=== PATIENT | male | born 1980 | race Caucasian/White ===

== ENCOUNTER → 2020-12-31 09:38 | Outpatient (CLI) | payer OTHER, SELFPAY ==
[2020-12-31] MEDS: COVID-19 VACC #1, MRNA(MOD) 100 MCG/0.5 ML VIAL IM (09:45)
== END ==
PROVIDERS: Visit Provider Internal Medicine
DX: Z23 Encounter for immunization (principal)
CPT/HCPCS: 0011A; 91301

== ENCOUNTER → 2021-01-28 08:18 | Outpatient (CLI) | payer OTHER, SELFPAY ==
[2021-01-28] MEDS: COVID-19 VACC #2, MRNA(MOD) 100 MCG/0.5 ML VIAL IM (08:23)
== END ==
PROVIDERS: Visit Provider Internal Medicine
DX: Z23 Encounter for immunization (principal)
CPT/HCPCS: 0012A; 91301

== ENCOUNTER 2021-03-01 06:49 | Emergency (ER) | payer OTHER, SELFPAY ==
[2021-03-01 06:57] VITALS: BP 141/89; PULSE 77; RESP 18; TEMP 36.1; O2SAT 97; BMI 33.7
--- NOTE | 2021-03-01 07:05 | ED.DENTAL ---
HPI - Dental/Oral General Chief complaint: Dental/Oral Stated complaint: TOOTH ISSUE, LEFT SIDE Time Seen by Provider: 03/01/21 06:54 Source: patient Mode of arrival: Ambulatory Limitations: no limitations History of Present Illness HPI Narrative: Patient is a 40-year-old male who presents with left upper dental pain ongoing for the last 2 days she has been taking ibuprofen for his last dose was at 3:00 a.m.. It is throbbing and painful no swelling or fevers quite sensitive to cold and heat and air. He has a dentist he just unable to get in touch with them at this time MD Complaint: tooth pain Teeth map: 1. [place], painful no dental abscess Relieving factors: NSAIDs Exacerbating factors: cold, heat and drinking fluids Related Data Previous Rx's Medication Instructions Recorded amoxicillin 500 mg PO BID #14 cap 03/01/21 Review of Systems Review of Systems Narrative: GENERAL: Denies chills,fever HEENT: See HPI RESPIRATORY: Denies dyspnea, cough, wheezing CARDIOVASCULAR: Denies chest pain, palpitations GASTROINTESTINAL: Denies nausea, vomiting MUSCULOSKELETAL: Denies extremity pain, injury SKIN: No rash, no laceration, no pruritus NEUROLOGIC: Denies weakness, dizziness, headache, numbness 8 point review of systems is negative except for those stated above and HPI Patient History Social History Smoking Status: Never smoker Smoking Status: Never smoker alcohol intake frequency: 0-2 drinks per day Substance Use Type: does not use Exam Initial Vital Signs Initial Vital Signs: Vital Signs Temperature 96.9 F L 03/01/21 06:57 Pulse Rate 77 03/01/21 06:57 Respiratory Rate 18 03/01/21 06:57 Blood Pressure 141/89 H 03/01/21 06:57 Pulse Oximetry 97 03/01/21 06:57 GENERAL: 40-year-old male appears in pain MOUTH: No dental abscess minimal dental alise is overall teeth look healthy. No facial swelling or erythema CARDIOVASCULAR: peripheral pulses in tact, cap refill <2 sec RESPIRATORY: No respiratory distress, speaks in full sentences without difficulty EXTREMITIES: Normal range of motion, no clubbing or edema. Neurovascularly intact NEUROLOGICAL: Cranial nerves II through XII grossly intact. Normal gait and speech. SKIN: Warm, dry, no petechiae, no rashes or lesions. Course Orders Ordered: Discontinued Medications Acetaminophen (Acetaminophen 325 Mg Tablet) 975 mg PO NOW ONE Stop: 03/01/21 07:11 Last Admin: 03/01/21 07:20 Dose: 975 mg Documented by: Vital Signs Vital signs: Vital Signs - 8 hr 03/01/21 06:57 Temperature 96.9 F L Pulse Rate 77 Respiratory Rate 18 Blood Pressure 141/89 H Pulse Oximetry 97 Discharge Plan Departure Patient Disposition: Home Clinical Impression: Toothache Instructions: DI for Dental Pain Activity Restrictions/Additional Instructions: *You have been diagnosed with dental pain *What to do: He will need to see a dentist. Pain control in antibiotics should help *Continue to take medications as directed Amoxicillin 500 mg twice a day for 7 days Ibuprofen 800 mg every 8 hours with food Tylenol 1000 mg every 6 hours (no more than 4000 mg in 24 hours) *Follow up with your primary care provider in 2-3 days *Return to ER if you should have facial swelling, redness, fever or any new, worsening or concerning symptoms Prescriptions: New amoxicillin 500 mg capsule 500 mg PO BID Qty: 14 RF: 0
[2021-03-01] MEDS: ACETAMINOPHEN 325 MG TABLET 975 MG PO (07:20)
== END 2021-03-01 07:27 | disposition home or self-care (01) ==
PROVIDERS: Emergency Provider Emergency Medicine
DX: K08.89 Other specified disorders of teeth and supporting structures (principal)
CPT/HCPCS: 99282; 99283

== ENCOUNTER 2023-09-20 15:10 | Emergency (ER) | payer OTHER, SELFPAY ==
[2023-09-20 15:30] VITALS: BP 145/95; PULSE 85; RESP 18; TEMP 37; O2SAT 96; BMI 34.9
[2023-09-20] MEDS: ONDANSETRON 4 MG ODT SL (15:41)
== END 2023-09-20 17:02 | disposition left against medical advice (07) ==
PROVIDERS: Emergency Provider Emergency Medicine; PCP Family Medicine
DX: R11.0 Nausea (principal)
CPT/HCPCS: 99283